=== PATIENT | male | born 2000 | race African-American/Black ===

== ENCOUNTER 2022-12-03 11:38 | Emergency (ER) | payer SELFPAY ==
[2022-12-03] MEDS ORDERED: Ondansetron ODT 4 MG TAB ONE (13:50)
[2022-12-03 15:24] LABS: SARS-CoV-2 NAA Rapid Test Not Detected (NotDetected)
== END 2022-12-03 15:38 | disposition home or self-care (01) ==
LOC: ERS 11:38
DX: B34.9 Viral infection, unspecified (principal); F17.290 Nicotine dependence, other tobacco product, uncomplicated; Z20.822 Contact with and (suspected) exposure to COVID-19
CPT/HCPCS: 87081; 87430; 99283; Q0162